=== PATIENT | female | born 1985 | race Two or more races ===

== ENCOUNTER 2024-07-27 21:39 | Emergency (ER) | payer MEDICAID, SELFPAY ==
[2024-07-27 22:01] VITALS: BP 153/93; PULSE 85; RESP 18; TEMP 36.6; O2SAT 99
--- NOTE | 2024-07-27 22:07 | XR_ITS ---
Examination: PA lateral chest 2 views Technique: Upright PA lateral chest 2 views Exam date and time: July 27, 2024 1012 hrs. Indications: Coughing beginning 10 days ago. Findings: Normal heart size The lungs are clear. The osseous structures are intact Impression: No active disease
--- NOTE | 2024-07-27 23:08 | PD.EDURI ---
Upper Respiratory Inf. RME/HPI General Chief Complaint: Flu Like Symptoms Stated Complaint: COUGHING X 1 WEEK Time Seen by Provider: 07/27/24 22:07 Arrival date/time: 07/27/24 21:39 39F with no significant PMH presents to ED with 10 days of cough. Patient went to clinic and was given albuterol and promethazine w/o relief. Limitations: no limitations Related Data Home Medications ?Medication ?Instructions ?Recorded ?Confirmed fluconazole 200 mg tablet 200 mg PO QDAY 01/24/22 01/24/22 sulfamethoxazole 800 1 tab PO Q12H 01/24/22 01/24/22 mg-trimethoprim 160 mg tablet Previous Rx's ?Medication ?Instructions ?Recorded prednisone 20 mg tablet 20 mg PO BID 4 days #8 tabs 07/28/24 Allergies Allergy/AdvReac Type Severity Reaction Status Date / Time No Known Allergies Allergy Verified 07/27/24 21:42 Review of Systems Review of Systems Systems Reviewed: All systems reviewed, normal except as documented Constitutional Constitutional: Reports system reviewed and no additional complaints, except as documented, Denies fever(s) and Denies headache(s) ENT Ears, Nose, Mouth, and Throat: Denies disequilibrium and Denies headache(s) Cardiovascular Cardiovascular: Reports system reviewed and no additional complaints, except as documented, Denies chest pain and Denies dyspnea Respiratory Respiratory: Reports system reviewed and no additional complaints, except as documented, Reports as per HPI, Reports cough and Denies dyspnea Gastrointestinal Gastrointestinal: Reports system reviewed and no additional complaints, except as documented, Denies abdominal pain, Denies nausea and Denies vomiting Neurologic Neurologic: Reports system reviewed and no additional complaints, except as documented, Denies confusion, Denies disequilibrium and Denies headache(s) Psychiatric Psychiatric: Denies confusion Past Medical History Past Medical History CARDIAC: Negative Congestive Heart Failure RESPIRATORY: Negative Chronic Obstructive Pulmonary Disease (COPD) GENITOURINARY: Negative Renal Disease ENDOCRINE: Negative Diabetes Mellitus Type 1 or Diabetes Mellitus Type 2 Surgical History SURGICAL: Positive Section (x3) Social History SMOKING STATUS: Never smoker SUBSTANCE USE: does not use ED Exam General Limitations: Present no limitations General appearance: Present alert and in no apparent distress Head Head exam: Present atraumatic Eye Eye exam: Present normal appearance, PERRL and EOMI ENT ENT exam: Present normal exam, normal oropharynx and mucous membranes moist Neck Neck exam: Present normal inspection, full ROM and trachea midline Chest Chest inspection: Present normal inspection and symmetric chest wall rise Respiratory Respiratory exam: Present normal lung sounds bilaterally Cardiovascular Cardiovascular exam: Present regular rate, normal rhythm and normal heart sounds Abdominal Exam Abdominal exam: Present soft and normal bowel sounds Extremities Exam Extremities exam: Present normal inspection and full ROM Back Exam Back exam: Present normal inspection and full ROM Neurological Exam Neurological exam: Present alert, oriented X3 and CN II-XII intact Psychiatric Psychiatric exam: Present normal affect and normal mood Skin Skin exam: Present warm, dry, intact and normal color Course Quality Measures none Orders Category Date Time Status XR chest 2V Stat Exams 07/27/24 22:07 Completed Dexamethasone Inj [Decadron Inj] Med 07/27/24 23:03 Discontinued 10 mg PO X1 ONE Vital Signs Vital signs: Vital Signs Temperature 98 F 07/27/24 22:01 Pulse Rate 85 07/27/24 22:01 Respiratory Rate 18 07/27/24 22:01 Blood Pressure 153/93 H 07/27/24 22:01 Pulse Oximetry (%) 99 07/27/24 22:01 Oxygen Delivery Method Room Air 07/27/24 22:01 O2 at 99% on RA and WNLs Upper Respiratory Infection MDM Narrative MDM Narrative:: 39F with no significant PMH presents to ED with 10 days of cough. Patient went to clinic and was given albuterol and promethazine w/o relief. Physical exam reveals clear ENT and lungs. Patient is afebrile, calm, and alert. CXR normal. Steroids greatly improved symptoms. Wafer Fab Technician given to see PCP for additional testing if problems persist, Patient data External records reviewed:: [facility] previous records Clinical information provided by:: patient Social determinants that could affect healthcare access:: none Patient has the following chronic illnesses:: none How is presenting disease/condition affected by chronic disease/condition?: no chronic disease Evaluation data The following diagnostics were reviewed and interpreted by me:: radiology exam(s) Lab and/or radiology exams considered but not ordered:: ordered Interpretation Summary: above Medications / Prescriptions Medications or Prescriptions considered but not ordered:: ordered Medication administrations:: Medication Administration History Discontinued Medications Dexamethasone Sodium Phosphate (Dexamethasone Sod Phos Inj 10 Mg/Ml Vial) 10 mg PO X1 ONE Stop: 07/27/24 23:04 Last Admin: 07/27/24 23:15 Dose: 10 mg Documented By: OA above Consultations Consultation(s) initiated? (list below): No Diagnosis Upper Respiratory Differential Diagnosis: upper respiratory infection, croup, otitis media, sinusitis, viral infection, bronchitis, influenza, pharyngitis and other (CAP, RAD) Most likely diagnosis given after review of the tests above:: RAD Admission Indicated Admission indicated?: not indicated Admission Request Was there a request for admission?: No Disposition Plan Disposition Plan: Discharge Discharge Attestation Discharge Attestation: The patient and all family members were given an opportunity to ask questions and understood the discharge instructions. Discharge instructions specifically effects, indications for sooner follow up or return to the emergency department, and the expected course of current diagnosis. Patient condition: Stable Discharge Plan Plan Patient Disposition: HOME (Self Care) Disposition Comment: Stable Prescriptions/Referrals Prescriptions/Med Rec: New prednisone 20 mg tablet 20 mg PO BID 4 Days Qty: 8 0RF No Action fluconazole 200 mg Tablet 200 mg PO QDAY sulfamethoxazole-trimethoprim [Sulfaprim DS] 800-160 mg Tablet 1 tab PO Q12H Referrals: Sissy Ferreira PA-C [Primary Care Provider] - In 1 week Problem List Clinical Impression: RAD (reactive airway disease) Patient/Caregiver Discharge Instructions Additional Instructions: Please follow-up with PCP within 24-48 hours and return immediately if symptoms worsen. If problems persists, can see PCP for official asthma testing. Print Language: Kinyarwanda Stand Alone Forms: Patient Portal Info Letter BEENA/ABDELRAHMAN Supervising Physician DIMITRI Supervising Physician: Dr. Bermudez
[2024-07-27] MEDS: DEXAMETHASONE SOD PHOS INJ 10 MG/ML VIAL PO (23:15)
[2024-07-28 01:06] VITALS: RESP 18
== END 2024-07-28 01:06 | disposition home or self-care (01) ==
PROVIDERS: Emergency Provider Emergency Medicine; PCP Specialist
DX: J45.909 Unspecified asthma, uncomplicated (principal)
CPT/HCPCS: 71046; 99283; J1100

== ENCOUNTER 2024-09-04 08:53 | Emergency (ER) | payer MEDICAID, SELFPAY ==
[2024-09-04 09:01] VITALS: BP 132/67; PULSE 66; RESP 17; TEMP 36.7; O2SAT 98; BMI 26.0
--- NOTE | 2024-09-04 09:10 | XR_ITS ---
Examination: CT abdomen and pelvis without contrast. Coronal 3-D reconstructions. Sagittal 2-D reconstructions. Date and time of exam:September 04, 2024 1009 hrs. Indications: Onset flank pain beginning 2 days ago CTDI: vol (mGy): 7.87 DLP: (mGycm): 392 Technique: Axial images of the abdomen have been obtained, 3 mm slice thickness Intravenous contrast material has not been administered. Low dose protocols were performed. One or more of the following dose reduction techniques were used; automated exposure control, adjustment of the mA and/or KV according to patient size, use of iterative reconstruction technique. Findings: No focal liver or splenic lesions No gallstones No pancreatic mass No renal or ureteral calculi, no hydronephrosis Aorta normal size Normal appendix Anteverted uterus No adnexal mass Mild free fluid in the pelvis No bladder mass or bladder calculi Moderate disc narrowing L4-L5 Impression: No renal or ureteral calculi, no hydronephrosis Normal appendix
--- NOTE | 2024-09-04 09:20 | PD.EDRME ---
Rapid Medical Screening Exam RME Arrival date/time: 09/04/24 08:53 This is a 39-year-old female presents to the emergency department with complaints of left flank pain and dysuria x 3 days. Chief Complaint: Urogenital-Female Time Seen by Provider: 09/04/24 09:03 Vital signs: Vital Signs Temperature 98.1 F 09/04/24 09:01 Pulse Rate 66 09/04/24 09:01 Respiratory Rate 17 09/04/24 09:01 Blood Pressure 132/67 H 09/04/24 09:01 Pulse Oximetry (%) 98 09/04/24 09:01 Oxygen Delivery Method Room Air 09/04/24 09:01
[2024-09-04 09:33] LABS: Collection Type, Urine Clean Catch
[2024-09-04 09:51] LABS: HCG Qualitative,Urine Negative
[2024-09-04 09:56] LABS: Bacteria,Urine 1+; Bilirubin,Urine Negative (Negative); Blood,Urine Negative (Negative); Clarity,Urine Clear (Clear/Hazy); Color,Urine Colorless (Lt Yel-Yel); Glucose, Urine Negative (Negative); Ketones,Urine Negative (Negative); Leukocyte Esterase,Urine Negative (Negative); Nitrite,Urine Negative (Negative); Protein,Urine Negative (Neg - Trace); RBC,Urine < 1 /hpf (0-3); Squamous Epithelial Cell,Urine 9 /hpf (0-5); Urobilinogen,Urine Negative mg/dL (0.0-1.0); WBC,Urine 1 /hpf (0-5)
[2024-09-04 10:10] LABS: Basophils # (Auto) 0.1 Thou/mm3 (0.0-0.2); Basophils % (Auto) 1 % (0-2.5); Eosinophils # (Auto) 0.2 Thou/mm3 (0.0-0.5); Eosinophils % (Auto) 3 % (0-10); Hematocrit 37.7 % (36.0-46.0); Hemoglobin 12.8 g/dL (12.0-16.0); Immature Granulocytes % (Auto) 0 % (0-0); Immature Granulocytes Auto 0.01 Thou/mm3 (0.00-0.00); Lymphocytes # (Auto) 1.3 Thou/mm3 (1.0-4.8); Lymphocytes % (Auto) 21 % (10-50); Mean Corpuscular Hemoglobin 29.2 pg (25.0-35.0); Mean Corpuscular Volume 86 fL (80-100); Monocytes # (Auto) 0.5 Thou/mm3 (0.0-0.8); Monocytes % (Auto) 9 % (0-12); Neutrophils # (Auto) 3.9 Thou/mm3 (1.8-7.7); Neutrophils % (Auto) 66 % (37-80); Nucleated Red Blood Cell % 0 /100 WBC (0); Platelet Count 252 Thou/mm3 (140-440); RDW Standard Deviation 38.8 fL (36.4-46.3); Red Blood Count 4.39 Miln/mm3 (4.00-5.20); White Blood Count 5.9 Thou/mm3 (3.6-11.0)
[2024-09-04 10:19] LABS: Alanine Aminotransferase 19 U/L (10-49); Albumin, Serum 4.2 gm/dL (3.5-5.0); Albumin/Globulin Ratio 1.6 (1.2-2.2); Alkaline Phosphatase 62 U/L (46-116); Anion Gap 6 (7-16); Aspartate Amino Transferase 19 U/L (0-34); BUN/Creatinine Ratio 20 Ratio (12-20); Bilirubin,Total 0.6 mg/dL (0.3-1.2); Blood Urea Nitrogen 12 mg/dL (9-23); Calcium 8.9 mg/dL (8.3-10.6); Calcium (Corrected) 8.9 mg/dL (8.5-10.1); Chloride 105 mMol/L (98-107); Creatinine (Component) 0.6 mg/dL (0.6-1.3); Estimated Creatinine Clearance 128.9 mL/min (>60); Globulin 2.6 gm/dL (2.3-3.5); Glucose 91 mg/dL (74-106); Lipase 33 U/L (12-53); Osmolality,Calculated 279 (275-295); Potassium 4.4 mMol/L (3.4-5.1); Sodium 140 mMol/L (136-145); Total Protein 6.8 gm/dL (5.7-8.2); eGFR > 60 See Note
--- NOTE | 2024-09-04 10:35 | PRELIM_ITS ---
CT scan of the abdomen and pelvis without intravenous contrast (axial sections with sagittal and bharati nal reformats) September 04, 2024 1009 hours Clinical History: Left flank pain. Radiation Dose: Total e xam DLP 392 mGy/cm Comparison: No prior study is available for comparison. Findings:The lung bases ar e clear.The liver, gallbladder, pancreas, spleen, kidneys and adrenals are unremarkable on this nonco ntrast study.No evidence of bowel obstruction. A moderate amount of fecal material is present in the colon. The appendix is within normal limits (coronal images 58-70/133). There is no mesenteric or ret roperitoneal adenopathy.The urinary bladder is unremarkable. The uterus is unremarkable. There are ri ght ovarian cysts/follicles. Trace free fluid is seen in the pelvis, likely physiologic. There is no free air.The osseous structures are unremarkable.Impression:No evidence of renal/ureteric calculus or hydroureteronephrosis. Other findings as described above. Report Electronically Signed By: Marvin jiménez 09/04/2024 10:34:34 AM [EST]
--- NOTE | 2024-09-04 13:14 | PD.EDADULT ---
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 Localized pain is 3-4 on a 10 scale nonradiating. RME / HPI RME / HPI narrative: 09/04/24 08:53 This is a 39-year-old female presents to the emergency department with complaints of left flank pain and dysuria x 3 days. Related Data Home Medications ?Medication ?Instructions ?Recorded ?Confirmed fluconazole 200 mg tablet 200 mg PO QDAY 01/24/22 01/24/22 sulfamethoxazole 800 1 tab PO Q12H 01/24/22 01/24/22 mg-trimethoprim 160 mg tablet Allergies Allergy/AdvReac Type Severity Reaction Status Date / Time No Known Allergies Allergy Verified 09/04/24 08:57 Review of Systems Review of Systems Narrative Review of Systems: GEN: No fever, no chills, no weight loss EYES: No discharge, no visual changes, no pain HEENT: No ear pain, no congestion, no sore throat PULM: No shortness of breath, no cough, no congestion CV: No chest pain, no dyspnea on exertion, no palpitations GI: No nausea, no vomiting, no diarrhea, no pain, no constipation : No frequency, no urgency, no dysuria MUSC/SKEL: No joint pain, + back pain SKIN: No rash PSYCH: No hallucinations, no depression HEME/LYMPH: No easy bleeding or bruising tendencies NEURO: No weakness, no headache Past Medical History Past Medical History CARDIAC: Negative Congestive Heart Failure RESPIRATORY: Negative Chronic Obstructive Pulmonary Disease (COPD) GENITOURINARY: Negative Renal Disease ENDOCRINE: Negative Diabetes Mellitus Type 1 or Diabetes Mellitus Type 2 Surgical History SURGICAL: Positive Section (x3) Social History SMOKING STATUS: Never smoker SUBSTANCE USE: does not use ED Exam Narrative Physical exam: [General: Not in any acute distress Head normocephalic HEENT: Within acceptable limits Neck is supple nontender Chest equal chest rise nontender to palpation Respiratory: Clear to auscultation no wheezes crackles or rubs CV: Rate rhythm is regular no murmurs rubs or clicks Abdomen is soft nontender no masses positive bowel sounds all 4 quadrants Back: Mild lower thoracic upper lumbar paraspinal tenderness on the left side no right-sided tenderness. No spinous process tenderness with palpation. Skin: Intact no petechiae rash induration ulceration or crepitus Extremities: Moving all extremity against resistance cap refill less than 2 seconds neurosensory intact Neuro: Awake alert oriented x3 Glascow coma 15 no focal deficits] Course Quality Measures none Orders Category Date Time Status CT abdomen pelvis wo con Stat Exams 09/04/24 09:10 Completed CBC Stat Lab 09/04/24 09:51 Completed Comprehensive Metabolic Panel Stat Lab 09/04/24 09:51 Completed HCG Qualitative,Urine Stat Lab 09/04/24 09:20 Completed Lipase Stat Lab 09/04/24 09:51 Completed Urinalysis Stat Lab 09/04/24 09:20 Completed Urine Culture Stat Lab 09/04/24 09:20 Received Vital Signs Vital signs: Vital Signs Temperature 98.1 F 09/04/24 09:01 Pulse Rate 66 09/04/24 09:01 Respiratory Rate 17 09/04/24 09:01 Blood Pressure 132/67 H 09/04/24 09:01 Pulse Oximetry (%) 98 09/04/24 09:01 Oxygen Delivery Method Room Air 09/04/24 09:01 [facility] Patient data External records reviewed:: [facility] previous records Clinical information provided by:: patient Social determinants that could affect healthcare access:: none Patient has the following chronic illnesses:: None How is presenting disease/condition affected by chronic disease/condition?: uneffected by Evaluation data The following diagnostics were reviewed and interpreted by me:: lab results and radiology exam(s) Lab and/or radiology exams considered but not ordered:: CBC shows no acute leukocytosis anemia thrombocytopenia CMP shows no acute electrolyte imbalances renal impairment transaminitis or T. bili elevation CT of the abdomen pelvis is negative for any acute finding quires emergent or meet intervention Urine is negative Lipase is negative Interpretation Summary: Based on the clinical presentation and physical exam the patient has low back strain this matches the story that the patient presents with regarding her new job and a pulling sensation with her upper extremities as part of the job requirement. Medications Medications considered but not ordered:: None Medication administrations:: None Consultations Consultation(s) initiated? (list below): No Diagnosis Differential Diagnosis ED Complaint MDM: Urolithiasis hydroureter your nephritis pyelonephritis Most likely diagnosis given after review of the tests above:: Low back strain Admission Indicated Admission indicated?: not indicated Explain why admission is indicated or not indicated:: Stable for outpatient follow-up Admission Request Was there a request for admission?: No Disposition Plan Disposition Plan: Discharge Discharge Attestation Discharge Attestation: The patient and all family members were given an opportunity to ask questions and understood the discharge instructions. Discharge instructions specifically effects, indications for sooner follow up or return to the emergency department, and the expected course of current diagnosis. Patient condition: Stable Medical Decision Making Differential Diagnosis Differential Diagnosis: Urolithiasis hydroureter your nephritis pyelonephritis Lab Data 09/04/24 09:51 09/04/24 09:51 Labs: Lab Results 09/04/24 09/04/24 Range/Units 09:20 09:51 WBC 5.9 (3.6-11.0) Thou/mm3 RBC 4.39 (4.00-5.20) Miln/mm3 Hgb 12.8 (12.0-16.0) g/dL Hct 37.7 (36.0-46.0) % MCV 86 (80-100) fL MCH 29.2 (25.0-35.0) pg MCHC 34.0 (31.0-37.0) g/dl RDW Std Deviation 38.8 (36.4-46.3) fL Plt Count 252 (140-440) Thou/mm3 Neut % (Auto) 66 (37-80) % Lymph % (Auto) 21 (10-50) % [place] % (Auto) 9 (0-12) % Eos % (Auto) 3 (0-10) % Baso % (Auto) 1 (0-2.5) % Neut # (Auto) 3.9 (1.8-7.7) Thou/mm3 Lymph # (Auto) 1.3 (1.0-4.8) Thou/mm3 [place] # (Auto) 0.5 (0.0-0.8) Thou/mm3 Eos # (Auto) 0.2 (0.0-0.5) Thou/mm3 Baso # (Auto) 0.1 (0.0-0.2) Thou/mm3 Immature Gran # (Auto) 0.01 H (0.00-0.00) Thou/mm3 Absolute Nucleated RBC 0.00 (0.00-0.00) Thou/mm3 Immature Gran % 0 (0-0) % Nucleated RBC % 0 (0) /100 WBC Sodium 140 (136-145) mMol/L Potassium 4.4 (3.4-5.1) mMol/L Chloride 105 (98-107) mMol/L Carbon Dioxide 29.0 (20.0-31.0) mMol/L Anion Gap 6 L (7-16) BUN 12 (9-23) mg/dL Creatinine 0.6 (0.6-1.3) mg/dL Estim Creat Clear Calc 128.9 (>60) mL/min eGFR > 60 (60 - ) See Note BUN/Creatinine Ratio 20 (12-20) Ratio Glucose 91 (74-106) mg/dL Calculated Osmolality 279 (275-295) Calcium 8.9 (8.3-10.6) mg/dL Corrected Calcium 8.9 (8.5-10.1) mg/dL Total Bilirubin 0.6 (0.3-1.2) mg/dL AST 19 (0-34) U/L ALT 19 (10-49) U/L Alkaline Phosphatase 62 (46-116) U/L Total Protein 6.8 (5.7-8.2) gm/dL Albumin 4.2 (3.5-5.0) gm/dL Globulin 2.6 (2.3-3.5) gm/dL Albumin/Globulin Ratio 1.6 (1.2-2.2) Lipase 33 (12-53) U/L Ur Collection Type Clean Catch Urine Color Colorless A (Lt Yel-Yel) Urine Clarity Clear (Clear/Hazy) Urine pH 6.0 (5.0-7.0) Ur Specific [place] 1.010 (1.001-1.035) Urine Protein Negative (Neg - Trace) Urine Glucose (UA) Negative (Negative) Urine Ketones Negative (Negative) Urine Blood Negative (Negative) Urine Nitrite Negative (Negative) Urine Bilirubin Negative (Negative) Urine Urobilinogen (Auto) Negative (0.0-1.0) mg/dL Ur Leukocyte Esterase Negative (Negative) Urine RBC < 1 (0-3) /hpf Urine WBC 1 (0-5) /hpf Ur Squamous Epith Cells 9 H (0-5) /hpf Urine Bacteria 1+ A (None) Urine HCG, Qual Negative Discharge Plan Plan Patient Disposition: HOME (Self Care) Patient condition on transfer: Stable Prescriptions/Referrals Prescriptions/Med Rec: No Action fluconazole 200 mg Tablet 200 mg PO QDAY sulfamethoxazole-trimethoprim [Sulfaprim DS] 800-160 mg Tablet 1 tab PO Q12H Referrals: Brannon Ferreira [Primary Care Provider] - In 1 week Problem List Clinical Impression: Back strain Patient/Caregiver Discharge Instructions Education Materials: ED Back Sprain/Strain Additional Instructions: Use [id number] ibuprofen Tylenol Lidoderm patches heating pads or ice for temporary relief. Print Language: Chinese Stand Alone Forms: Stephanie Award Info., Patient Portal Info Letter, Work/School Release PA/FIRE PROTECTION DESIGNER Supervising Physician PA/FIRE PROTECTION DESIGNER Supervising Physician: Adolfo Padilla ENP
== END 2024-09-04 13:25 | disposition home or self-care (01) ==
PROVIDERS: Nurse Practitioner Primary Care; Emergency Provider Emergency Medicine; PCP Physician Assistant
DX: S39.012A Strain of muscle, fascia and tendon of lower back, initial encounter (principal); X58.XXXA Exposure to other specified factors, initial encounter; Y99.0 Civilian activity done for income or pay
CPT/HCPCS: 36415; 74176; 80053; 81001; 81025; 83690; 85025; 87086; 99284

== ENCOUNTER 2025-08-07 16:48 | Emergency (ER) | payer MEDICAID, SELFPAY ==
[2025-08-07 16:55] VITALS: BP 160/92; PULSE 76; RESP 18; TEMP 36.8; O2SAT 99
--- NOTE | 2025-08-07 17:08 | XR_ITS ---
EXAMINATION: PA chest single view TECHNIQUE: Upright PA chest single view Date and time: August 07, 2025, 1728 hours, comparison July 27, 2024 INDICATION: Coughing 1 month. FINDINGS: Normal heart size Lungs are clear. Intact osseous structures IMPRESSION: No active disease
--- NOTE | 2025-08-07 17:22 | EDNOTE_ITS ---
<Statement entered by Mile Galarza MD - 08/08/25 17:44> As co-signing physician, I was present and available for consult prn. I concur with the plan and care as documented by the midlevel provider. Upper Respiratory Inf. RME/HPI General Chief Complaint: Flu Like Symptoms Stated Complaint: COUGH X 1 MO, SOB Time Seen by Provider: 08/07/25 16:52 Source: patient, RN notes reviewed and old records reviewed Arrival date/time: 08/07/25 16:48 Mode of arrival: ambulatory Limitations: no limitations RME / HPI RME / HPI Narrative: 40yof presents to ED for 1 month history of persistent cough. Patient reports shortness of breath over the past 3 days. Denies history of asthma but RAD in the past with URIs. Patient has taken promethazine and used albuterol inhaler with mild relief. No fever, chest pain, nausea/vomiting, dizziness or syncope reported. Related Data Home Medications ?Medication ?Instructions ?Recorded ?Confirmed fluconazole 200 mg tablet 200 mg PO QDAY 01/24/2211/12 sulfamethoxazole 800 1 tab PO Q12H 01/24/2201/24 mg-trimethoprim 160 mg tablet Previous Rx's ?Medication ?Instructions ?Recorded albuterol sulfate 90 mcg/actuation 2 puff inhalation Q 4H PRN 08/07/25 aerosol inhaler (Ventolin HFA) shortness of breath or wheezing #18 grams benzonatate 200 mg capsule 200 mg PO TID PRN cough #30 caps 08/07/25 prednisone 50 mg tablet 50 mg PO QDAY 5 days #5 tabs 08/07/25 Allergies Allergy/AdvReac Type Severity Reaction Status Date / Time No Known Allergies Allergy Verified 08/07/25 16:53 Review of Systems Review of Systems Systems Reviewed: All systems reviewed, normal except as documented Constitutional Constitutional: Denies chills and Denies fever(s) ENT Ears, Nose, Mouth, and Throat: Denies nasal congestion and Denies vertigo Cardiovascular Cardiovascular: Denies chest pain, Reports dyspnea and Denies syncope Respiratory Respiratory: Reports cough and Reports dyspnea Gastrointestinal Gastrointestinal: Denies nausea and Denies vomiting Neurologic Neurologic: Denies syncope and Denies vertigo Past Medical History Surgical History SURGICAL: Positive Section (x3) Social History SMOKING STATUS: Never smoker SUBSTANCE USE: does not use ALCOHOL: Current (occasional) Past Medical History Comments PMH COMMENT: denies past medical history ED Exam General Limitations: Present no limitations General appearance: Present alert and in no apparent distress Head Head exam: Present atraumatic and normocephalic Eye Eye exam: Present normal appearance, PERRL and EOMI ENT ENT exam: Present normal exam, normal oropharynx, mucous membranes moist and TM's normal bilaterally Neck Neck exam: Present normal inspection and full ROM Chest Chest inspection: Present normal inspection and symmetric chest wall rise Respiratory Respiratory exam: Present normal lung sounds bilaterally and other (No wheezing, rales or rhonchi); Absent respiratory distress Cardiovascular Cardiovascular exam: Present regular rate and normal rhythm Extremities Exam Extremities exam: Present normal inspection and full ROM; Absent pedal edema Back Exam Back exam: Present normal inspection and full ROM; Absent tenderness Neurological Exam Neurological exam: Present alert and oriented X3 Psychiatric Psychiatric exam: Present normal affect and normal mood Skin Skin exam: Present warm, dry, intact and normal color Course Quality Measures none Orders Category Date Time Status CXR2 [XR chest 2V] Stat Exams 08/07/25 17:08 Completed Albuterol/Ipratr Rt Audrey [Duoneb Rt Audrey] Med 08/07/25 17:08 Discontinued 3 ml INH X1 ONE predniSONE Med 08/07/25 17:08 Discontinued 60 mg PO X1 ONE Vital Signs Vital signs: Vital Signs Temperature 98.2 F 08/07/25 16:55 Pulse Rate 76 08/07/25 16:55 Respiratory Rate 18 08/07/25 16:55 Blood Pressure 160/92 H 08/07/25 16:55 Pulse Oximetry (%) 99 08/07/25 16:55 Oxygen Delivery Method Room Air 08/07/25 16:55 Upper Respiratory Infection MDM Narrative MDM Narrative:: 40yof presents to ED for 1 month history of persistent cough. Patient reports shortness of breath over the past 3 days. Denies history of asthma but RAD in the past with URIs. Patient has taken promethazine and used albuterol inhaler with mild relief. No fever, chest pain, nausea/vomiting, dizziness or syncope reported. Patient reassessed. She is feeling better, symptoms improved after neb treatment. CXR negative. Will treat for bronchitis. Patient is nontoxic- appearing, afebrile, vitals are stable. No evidence of respiratory distress or hypoxia. Will DC home with 5-day course of prednisone. Recommended continued use of albuterol and cough suppressants prn. Stable for discharge, RTED precautions given. Patient data External records reviewed:: [facility] previous records (09/04/2024 ED visit for back strain) Clinical information provided by:: patient Social determinants that could affect healthcare access:: other (specify) (Unemployed) Patient has the following chronic illnesses:: None How is presenting disease/condition affected by chronic disease/condition?: no chronic disease Evaluation data The following diagnostics were reviewed and interpreted by me:: radiology exam(s) Lab and/or radiology exams considered but not ordered:: COVID/flu: Results would not affect treatment plan Interpretation Summary: CXR: No pneumonia per my read Medications / Prescriptions Medications or Prescriptions considered but not ordered:: No antibiotics recommended at this time Medication administrations:: Medication Administration History Discontinued Medications Albuterol/Ipratropium (Albuterol/Ipratropium (Duoneb) Rt Audrey 3 Ml Nebu) 3 ml INH X1 ONE Stop: 08/07/25 17:09 Last Admin: 08/07/25 18:13 Dose: 3 ml Documented By: [email or web address] Prednisone (Prednisone 20 Mg Tablet) 60 mg PO X1 ONE Stop: 08/07/25 17:09 Last Admin: 08/07/25 18:07 Dose: 60 mg Documented By: [email or web address] Above medications administered in ED Consultations Consultation(s) initiated? (list below): No Diagnosis Upper Respiratory Differential Diagnosis: upper respiratory infection, sinusitis, viral infection, bronchitis and influenza Most likely diagnosis given after review of the tests above:: Bronchitis Admission Indicated Admission indicated?: not indicated Admission Request Was there a request for admission?: No Disposition Plan Disposition Plan: Discharge Discharge Attestation Discharge Attestation: The patient and all family members were given an opportunity to ask questions and understood the discharge instructions. Discharge instructions specifically effects, indications for sooner follow up or return to the emergency department, and the expected course of current diagnosis. Patient condition: Stable Discharge Plan Plan Patient Disposition: HOME (Self Care) Patient condition on transfer: Stable Prescriptions/Referrals Prescriptions/Med Rec: New prednisone 50 mg tablet 50 mg PO QDAY 5 Days Qty: 5 0RF benzonatate 200 mg capsule 200 mg PO TID PRN (Reason: cough) Qty: 30 0RF albuterol sulfate [Ventolin HFA] 90 mcg/actuation HFA aerosol inhaler 2 puff inhalation Q4H PRN (Reason: shortness of breath or wheezing) Qty: 18 0RF No Action fluconazole 200 mg Tablet 200 mg PO QDAY sulfamethoxazole-trimethoprim [Sulfaprim DS] 800-160 mg Tablet 1 tab PO Q12H Problem List Clinical Impression: Bronchitis Patient/Caregiver Discharge Instructions Education Materials: ED Bronchitis, No Antibiotic (Adult) Print Language: Norwegian Stand Alone Forms: Stephanie Award Info., Patient Portal Info Letter PA/COST CONTROL SUPERVISOR Supervising Physician PA/COST CONTROL SUPERVISOR Supervising Physician: Michell
[2025-08-07] MEDS: ALBUTEROL/IPRATROPIUM (Duoneb) RT SOL 3 ML NEBU INH (18:13)
[2025-08-07 18:17] VITALS: PULSE 64; RESP 20; O2SAT 99
== END 2025-08-07 19:26 | disposition home or self-care (01) ==
LOC: SERX 19:11
PROVIDERS: Emergency Provider Emergency Medicine
DX: J40 Bronchitis, not specified as acute or chronic (principal)
CPT/HCPCS: 71046; 94640; 99283; A9270; J7512